=== PATIENT | male | born 1965 | race Asian ===

== ENCOUNTER 2022-07-27 10:38 | Emergency (ER) | payer OTHER ==
[~2022-07-27] VITALS: Ht 167.6 cm; Wt 74.8 kg
[2022-07-27 10:48] VITALS: TEMP 98.3
[2022-07-27 12:14] VITALS: BP 150/94
== END 2022-07-27 12:14 | disposition home or self-care (01) ==
LOC: ED 10:38
DX: S39.012A Strain of muscle, fascia and tendon of lower back, initial encounter (principal); X58.XXXA Exposure to other specified factors, initial encounter
CPT/HCPCS: 81002; 96372; 99283; J1100; J1885